=== PATIENT | female | born 1990 | race Two or more races ===

== ENCOUNTER 2021-01-13 18:07 | Inpatient (IN) | payer OTHER ==
[~2021-01-13] VITALS: Ht 162.6 cm; Wt 99.1 kg
[2021-01-13] MEDS ORDERED: KETOROLAC 30 MG/1 ML ONE (19:29)
[2021-01-13] MEDS ORDERED: OXYcodone/APAP 5/325MG TABLET ONE (19:29)
[2021-01-13] MEDS ORDERED: OXYcodone/APAP 5/325MG TABLET PO ONE (19:30)
[2021-01-13] MEDS ORDERED: KETOROLAC 30 MG/1 ML IM ONE (19:30)
--- NOTE | 2021-01-13 19:40 | NUR ---
REPORT FROM CHERI ARIAS. PT RESTING IN BED, PT REMAINS ON MONITORS. PT MEDICATED FOR PAIN PER ORDERS. AWAITING LAB RESULTS. CONT TO MONITOR.
[2021-01-13 19:49] LABS: BASOPHILS % (AUTO) 0 % (0-1); EOSINOPHILS % (AUTO) 1 % (1-7); LYMPHOCYTES % (AUTO) 19 % (22-44); MEAN CORPUSCULAR HEMOGLOBIN 29.5 pg (27.0-34.8); MEAN CORPUSCULAR HGB CONC 33.8 g/dL (32.4-35.8); MEAN PLATELET VOLUME 7.5 fL (7.4-10.4); MONOCYTES % (AUTO) 6 % (2-9); NEUTROPHILS % (AUTO) 73 % (42-75); PLATELET COUNT 317 x10^3/uL (130-400); RED BLOOD COUNT 4.43 x10^6/uL (3.82-5.3); RED CELL DISTRIBUTION WIDTH 14.1 % (9.6-15.2)
[2021-01-13 19:55] LABS: MD NO
[2021-01-13 20:00] LABS: ALBUMIN 3.5 g/dL (3.4-5.0); ANION GAP 7 mmol/L (5-15); CALCIUM 8.7 mg/dL (8.5-10.1); CHLORIDE 108 mmol/L (98-107); CREATININE 0.69 mg/dL (0.55-1.02)
[2021-01-13 20:31] LABS: HCT (SEDRATE) 38.7 % (34.6-47.8)
--- NOTE | 2021-01-13 20:35 | NUR ---
PT RESTING IN BED, STATES PAIN DECREASED, PAIN MEDICATIONS EFFECTIVE. UP FOR ERMD RECHECK.
[2021-01-13] MEDS ORDERED: SODIUM CHLORIDE FLUSH 10ML SYR IVF ONE (21:00)
--- NOTE | 2021-01-13 21:07 | NUR ---
REPORT TO DAVID ARIAS.
[2021-01-13] MEDS ORDERED: GADOTERATE 10 MMOL/20ML SYR ONE (21:50)
[2021-01-13] MEDS ORDERED: ONDANSETRON 2MG/ML, 2ML ONE (22:58)
[2021-01-13] MEDS ORDERED: MORPHINE SULFATE 4 MG/ML, 1ML ONE (22:58)
[2021-01-13] MEDS ORDERED: VANCOMYCIN 2,000 MG in SODIUM CHLORIDE 0.9% 500 ML IV ONE (23:00)
[2021-01-13] MEDS ORDERED: ONDANSETRON 2MG/ML, 2ML IVPush PRN (23:00)
[2021-01-13] MEDS ORDERED: MORPHINE SULFATE 4 MG/ML, 1ML IVPush PRN ×2 (23:00)
[2021-01-13] MEDS ORDERED: VANCOMYCIN PER PHARMACY MC ONE (23:00)
[2021-01-13] MEDS ORDERED: AMPICILLIN/SULBACTAM 3 GM in SODIUM CHLORIDE 0.9% 100 ML IV ONE (23:00)
[2021-01-13] MEDS ORDERED: SODIUM CHLORIDE 0.9% 1,000 ML IV ONE (23:00)
[2021-01-14] VITALS (10 sets, daily range): BP systolic 89–105; BP diastolic 59–70
[2021-01-14] MEDS ORDERED: VANCOMYCIN PER PHARMACY MC PRN
[2021-01-14] MEDS ORDERED: BISACODYL 10 MG SUPP PR PRN
[2021-01-14] MEDS ORDERED: POLYETHYLENE GLYCOL 17 GM PACKET PO PRN
[2021-01-14] MEDS ORDERED: DOCUSATE 100 MG CAPSULE PO PRN
[2021-01-14] MEDS ORDERED: ONDANSETRON 2MG/ML, 2ML IVPush PRN
[2021-01-14] MEDS ORDERED: PROMETHAZINE 25 MG/ML, 1ML IM PRN
[2021-01-14] MEDS ORDERED: ONDANSETRON ODT 4 MG PO PRN
[2021-01-14] MEDS ORDERED: PHARMACOKINETIC MONITORING MC PRN (00:30)
[2021-01-14] MEDS: SODIUM CHLORIDE 0.9% 1,000 ML IV SCH ×2 (00:35→12:53)
[2021-01-14] MEDS: OXYcodone IR 5MG TABLET PO PRN ×2 (00:49→10:03)
[2021-01-14] MEDS ORDERED: DIPHENHYDRAMINE 25 MG CAPSULE PO ONE (02:30)
[2021-01-14] MEDS: AMPICILLIN/SULBACTAM 3 GM in SODIUM CHLORIDE 0.9% 100 ML IV SCH ×3 (04:46→19:46)
[2021-01-14 05:53] LABS: BASOPHILS % (AUTO) 1 % (0-1); EOSINOPHILS % (AUTO) 1 % (1-7); LYMPHOCYTES % (AUTO) 12 % (22-44); MEAN CORPUSCULAR HEMOGLOBIN 29.3 pg (27.0-34.8); MEAN PLATELET VOLUME 7.8 fL (7.4-10.4); MONOCYTES % (AUTO) 4 % (2-9); NEUTROPHILS % (AUTO) 83 % (42-75); PLATELET COUNT 293 x10^3/uL (130-400); RED BLOOD COUNT 4.54 x10^6/uL (3.82-5.3); RED CELL DISTRIBUTION WIDTH 13.7 % (9.6-15.2)
[2021-01-14 05:57] LABS: MD NO
[2021-01-14 06:06] LABS: CHLORIDE 110 mmol/L (98-107)
[2021-01-14 06:22] LABS: ALANINE AMINOTRANSFERASE 16 U/L (12-78); ALBUMIN 2.8 g/dL (3.4-5.0); ALKALINE PHOSPHATASE 59 U/L (45-117); ANION GAP 8 mmol/L (5-15); BILIRUBIN,TOTAL 0.3 mg/dL (0.2-1.0); CALCIUM 7.6 mg/dL (8.5-10.1); CHOL/HDL RATIO 4.6; CHOLESTEROL, TOTAL 102 mg/dL (140-239); CREATININE 0.63 mg/dL (0.55-1.02); HDL CHOL % 22 % (28-40); HDL CHOLESTEROL (DIRECT) 22 mg/dL (40-60); LDL CHOLESTEROL,CALCULATED 56 mg/dL (54-169); LDL/HDL RATIO 2.5 (0.5-3.0); TOTAL PROTEIN 6.4 g/dL (6.4-8.2); TRIGLYCERIDES 120 mg/dL (50-200); VLDL CHOLESTEROL 24 mg/dL (0-25)
[2021-01-14] MEDS: VANCOMYCIN 1,900 MG in SODIUM CHLORIDE 0.9% 250 ML IV SCH ×2 (11:56→23:00)
[2021-01-14] MEDS: ENOXAPARIN 40 MG/0.4 ML SQ SCH (13:56)
[2021-01-14] MEDS ORDERED: CHLORHEXIDINE 15 ML UDC ONE (16:36)
[2021-01-14] MEDS ORDERED: MIDAZOLAM 1 MG/ML, 2ML ONE (17:13)
[2021-01-14] MEDS ORDERED: FENTANYL PF 250 MCG/5ML ONE (17:13)
[2021-01-14] MEDS ORDERED: SODIUM CHLORIDE 0.9% PF 10ML ONE (17:15)
[2021-01-14] MEDS ORDERED: CEFAZOLIN 1,000 MG ONE ×2 (17:15)
[2021-01-14] MEDS ORDERED: MEPERIDINE/PF 25MG/0.5ML IVPush PRN (17:30)
[2021-01-14] MEDS ORDERED: hydrALAzine 20 MG/ML, 1ML IV PRN (17:30)
[2021-01-14] MEDS ORDERED: LABETALOL 5MG/ML, 20ML IV PRN (17:30)
[2021-01-14] MEDS ORDERED: PROMETHAZINE 25 MG/ML, 1ML IVPush PRN (17:30)
[2021-01-14] MEDS ORDERED: morphine SULFATE 10 MG/ML, 1ML IVPush PRN (17:30)
[2021-01-14] MEDS ORDERED: ACETAMINOPHEN 325 MG TABLET PO PRN ×2 (17:30)
[2021-01-14] MEDS ORDERED: HALOPERIDOL 5 MG/ML IV PRN (17:30)
[2021-01-14] MEDS ORDERED: OXYcodone 5 MG/5 ML ORAL.SOL UDC PO PRN (17:30)
[2021-01-14] MEDS ORDERED: HYDROmorphone 1 MG/ML, 1ML INJ IVPush PRN (17:30)
[2021-01-14] MEDS ORDERED: FENTANYL PF 100 MCG/2ML ONE (18:40)
[2021-01-14] MEDS ORDERED: OXYcodone 5 MG/5 ML ORAL.SOL UDC ONE (18:40)
[2021-01-14] MEDS: FENTANYL PF 100 MCG/2ML IV PRN ×2 (18:43→19:06)
[2021-01-14] MEDS ORDERED: KETOROLAC 30 MG/1 ML ONE (18:46)
[2021-01-14] MEDS: KETOROLAC 30 MG/1 ML IVPush SCH (18:48)
[2021-01-14] MEDS ORDERED: OXYcodone/APAP 5/325MG TABLET PO PRN (19:00)
[2021-01-14] MEDS ORDERED: HYDROmorphone 2 MG/ML, 1ML IVPush PRN (19:00)
[2021-01-14 19:39] LABS: BASOPHILS % (AUTO) 0 % (0-1); EOSINOPHILS % (AUTO) 2 % (1-7); LYMPHOCYTES % (AUTO) 7 % (22-44); MEAN CORPUSCULAR HEMOGLOBIN 29.1 pg (27.0-34.8); MEAN CORPUSCULAR HGB CONC 32.8 g/dL (32.4-35.8); MEAN PLATELET VOLUME 7.2 fL (7.4-10.4); MONOCYTES % (AUTO) 2 % (2-9); NEUTROPHILS % (AUTO) 89 % (42-75); PLATELET COUNT 293 x10^3/uL (130-400); RED BLOOD COUNT 4.17 x10^6/uL (3.82-5.3); RED CELL DISTRIBUTION WIDTH 13.7 % (9.6-15.2)
[2021-01-14 19:49] LABS: ALBUMIN 2.8 g/dL (3.4-5.0); ANION GAP 7 mmol/L (5-15); CALCIUM 7.8 mg/dL (8.5-10.1); CHLORIDE 110 mmol/L (98-107); CREATININE 0.58 mg/dL (0.55-1.02)
[2021-01-14 20:06] LABS: MD SCAN
[2021-01-14] MEDS ORDERED: LACTATED RINGERS 1,000 ML IVBOLUS ONE (23:00)
[2021-01-15] VITALS: BP 112/74
[2021-01-15 02:21] VITALS: BP 90/50
[2021-01-15] MEDS: AMPICILLIN/SULBACTAM 3 GM in SODIUM CHLORIDE 0.9% 100 ML IV SCH ×4 (02:24→20:04)
[2021-01-15] MEDS: KETOROLAC 30 MG/1 ML IVPush SCH ×2 (02:26→11:22)
[2021-01-15 06:03] VITALS: BP 108/69
[2021-01-15 06:40] VITALS: BP 108/73
[2021-01-15] MEDS: VANCOMYCIN 1,900 MG in SODIUM CHLORIDE 0.9% 250 ML IV SCH ×2 (11:17→23:00)
[2021-01-15] MEDS: ENOXAPARIN 40 MG/0.4 ML SQ SCH (12:42)
[2021-01-15 13:47] LABS: ANA SCREEN NEGATIVE (Negative)
[2021-01-15 13:55] VITALS: BP 107/67
[2021-01-15 20:08] VITALS: BP 103/66
[2021-01-16 02:07] VITALS: BP 96/60
[2021-01-16] MEDS: AMPICILLIN/SULBACTAM 3 GM in SODIUM CHLORIDE 0.9% 100 ML IV SCH ×4 (02:07→20:23)
[2021-01-16 05:53] LABS: BASOPHILS % (AUTO) 0 % (0-1); EOSINOPHILS % (AUTO) 2 % (1-7); LYMPHOCYTES % (AUTO) 32 % (22-44); MEAN CORPUSCULAR HEMOGLOBIN 29.7 pg (27.0-34.8); MEAN CORPUSCULAR HGB CONC 34.2 g/dL (32.4-35.8); MEAN PLATELET VOLUME 7.3 fL (7.4-10.4); MONOCYTES % (AUTO) 5 % (2-9); NEUTROPHILS % (AUTO) 60 % (42-75); PLATELET COUNT 290 x10^3/uL (130-400); RED CELL DISTRIBUTION WIDTH 13.6 % (9.6-15.2)
[2021-01-16 05:55] LABS: ALBUMIN 2.5 g/dL (3.4-5.0); ANION GAP 5 mmol/L (5-15); CALCIUM 7.8 mg/dL (8.5-10.1); CHLORIDE 112 mmol/L (98-107); CREATININE 0.55 mg/dL (0.55-1.02)
[2021-01-16 05:58] LABS: MD NO
[2021-01-16 07:42] VITALS: BP 116/78
[2021-01-16] MEDS: VANCOMYCIN 1,900 MG in SODIUM CHLORIDE 0.9% 250 ML IV SCH (11:05)
[2021-01-16] MEDS: OXYcodone IR 5MG TABLET PO PRN (12:01)
[2021-01-16] MEDS: ENOXAPARIN 40 MG/0.4 ML SQ SCH (13:21)
[2021-01-16 13:30] VITALS: BP 121/75
[2021-01-16] MEDS: VANCOMYCIN 1,500 MG in SODIUM CHLORIDE 0.9% 250 ML IV SCH ×2 (19:00→19:35)
[2021-01-16 20:14] VITALS: BP 100/65
[2021-01-17 00:02] VITALS: BP 106/72
[2021-01-17] MEDS: AMPICILLIN/SULBACTAM 3 GM in SODIUM CHLORIDE 0.9% 100 ML IV SCH ×3 (02:04→14:11)
[2021-01-17 06:56] VITALS: BP 134/87
[2021-01-17] MEDS: VANCOMYCIN 1,500 MG in SODIUM CHLORIDE 0.9% 250 ML IV SCH (09:50)
[2021-01-17] MEDS: ENOXAPARIN 40 MG/0.4 ML SQ SCH (12:55)
[2021-01-17] MEDS ORDERED: AMOX1TAB64 PO (13:34)
[2021-01-17 13:39] VITALS: BP 126/83
[2021-01-17] MEDS ORDERED: OXYC5TAB98 PO (14:27)
== END 2021-01-17 15:58 | disposition home or self-care (01) | DRG 501 ==
LOC: EDSEX 18:07 → ED 20:30 → EDIP 01-14 00:07 → 3N 01-14 00:12
PROVIDERS: ADMIT Internal Medicine; ATTEND Family Medicine
PROC: 0J9G0ZZ Drainage of Right Lower Arm Subcutaneous Tissue and Fascia, Open Approach (ICD-10-PCS; 2021-01-14)
PROC: 0J9J0ZZ Drainage of Right Hand Subcutaneous Tissue and Fascia, Open Approach (ICD-10-PCS; principal; 2021-01-14 17:00)
DX: M65.131 Other infective (teno)synovitis, right wrist (principal); L03.113 Cellulitis of right upper limb; Z20.822 Contact with and (suspected) exposure to COVID-19; D72.829 Elevated white blood cell count, unspecified
CPT/HCPCS: 36415; 80048; 80053; 80061; 80069; 80202; 82040; 83036; 83735; 84100; 84443; 84550; 84703; 85025; 85651; 86038; 86140; 86430; 87070; 87075; 87205; 87635; 96372; 96374; 96375; 99285; G0378; J0295; J0690; J1170; J1650; J1885; J2250; J2405; J3010; J3370; A9575; J2270; J7030; J7040; J7120; Q0163